=== PATIENT | male | born 1975 | race Caucasian/White ===

== ENCOUNTER 2023-08-17 17:22 | Emergency (ER) | payer OTHER, SELFPAY ==
--- NOTE | ~2023-08-17 | XR_ITS ---
EXAMINATION: XR chest 2V DATE: 08/17/2023 18:27 INDICATION: Cough and fever. TECHNIQUE: Frontal and lateral views of the chest were obtained. COMPARISON: None. FINDINGS: There are airspace opacities in the lower lung zones. No pleural effusion or pneumothorax. The heart size is normal. There are old healed right rib fractures. IMPRESSION: 1. Airspace opacities in the lower lung zones, consistent with atelectasis versus pneumonia. Reviewed, dictated and finalized at location E. IMPRESSION: 1. Airspace opacities in the lower lung zones, consistent with atelectasis vers us pneumonia.
[2023-08-17 18:00] VITALS: BP 115/84; PULSE 120; RESP 16; TEMP 38.7; O2SAT 95
--- NOTE | 2023-08-17 18:00 | ED.URI ---
HPI - URI/Sore Throat General Chief Complaint: Upper Respiratory Infection <Kurtis Ramirez APRN - Last Filed: 09/06/23 08:53> Stated Complaint: I think I have a chest infection <Kurtis Ramirez APRN - Last Filed: 09/06/23 08:53> Time Seen by Provider: 08/17/23 19:58 <Kurtis Ramirez APRN - Last Filed: 09/06/23 08:53> Focused HPI: GENERAL: Well-appearing, well-nourished, and in no acute distress. HEAD: Normocephalic, atraumatic. CHEST: Rhonchi right side No respiratory distress. HEART: Regular rate and rhythm. NEURO: Alert and oriented x3. Patient screened in triage and initial orders placed. Additional care and disposition to be based upon diagnostic testing and treatment. 47-year-old male presents emergency room for evaluation of URI symptoms have been present for 1 month. Patient is complaining of painful productive cough over the last couple of days. States he has been experiencing right-sided chest pain with cough and inspiration. States he developed a fever 2 days ago. <Kurtis Ramirez APRN - Last Filed: 09/06/23 08:53> History of Present Illness HPI Narrative: Agree with above HPI <Buck Almendarez MD - Last Filed: 08/17/23 20:15> Related Data Allergies/Adverse Reactions: Allergies Allergy/AdvReac Type Severity Reaction Status Date / Time No Known Allergies Allergy Verified 04/06/15 20:37 <Kurtis Ramirez APRN - Last Filed: 09/06/23 08:53> Review of Systems Review of Systems: All systems reviewed & are unremarkable except as noted in HPI and below <Buck Almendarez MD - Last Filed: 08/17/23 20:15> Constitutional: Constitutional: Denies chills, Reports fatigue and Reports fever(s) <Buck Almendarez MD - Last Filed: 08/17/23 20:15> Cardiovascular: Cardiovascular: Reports chest pain, Denies rapid heart rate and Denies radiating jaw, neck or arm pain <Buck Almendarez MD - Last Filed: 08/17/23 20:15> Respiratory: Respiratory: Reports cough, Reports dyspnea and Denies wheezing <Buck Almendarez MD - Last Filed: 08/17/23 20:15> Gastrointestinal: Gastrointestinal: Reports no additional gastrointestinal complaints <Buck Almendarez MD - Last Filed: 08/17/23 20:15> Musculoskeletal: Musculoskeletal: Reports no additional musculoskeletal complaints <Buck Almendarez MD - Last Filed: 08/17/23 20:15> [id number] Past Medical History Medical History: Medical History (Updated 08/18/23 @ 00:03 by Tex Lorenz) Pneumothorax <Kurtis Ramirez, [employer] - Last Filed: 09/06/23 08:53> Surgical History Surgical History: Surgical History (Updated 08/17/23 @ 20:11 by Buck Almendarez MD) H/O hernia repair <Kurtis Ramirez, [employer] - Last Filed: 09/06/23 08:53> Exam Narrative: GENERAL: Well-appearing, well-nourished, and in no acute distress. HEAD: Normocephalic, atraumatic. CHEST: Clear to auscultation. No respiratory distress. HEART: Tachycardic and regular. Normal peripheral pulses. EXTREMITIES: Normal range of motion. No edema. SKIN: Warm, dry, no rash. NEURO: Alert and oriented x3. PSYCH: Normal mood and affect. <Buck Almendarez MD - Last Filed: 08/17/23 20:15> Course Course Emergency Course: Diagnosed with pneumonia. Discussed outpatient treatment plan and labs/imaging. Discharge. <Buck Almendarez MD - Last Filed: 08/17/23 20:15> Vital Signs Vital signs: Vital Signs Temperature 38.7 C H 08/17/23 18:00 Pulse Rate 120 H 08/17/23 18:00 Respiratory Rate 16 08/17/23 18:00 Blood Pressure 115/84 08/17/23 18:00 Pulse Oximetry 95 08/17/23 18:00 Oxygen Delivery Room Air 08/17/23 18:00 Temperature 37.1 C 08/17/23 20:12 Pulse Rate 98 08/17/23 20:12 Respiratory Rate 15 08/17/23 20:12 Blood Pressure 132/60 08/17/23 20:12 Pulse Oximetry 99 08/17/23 20:12 Oxygen Delivery Room Air 08/17/23 20:12 <Kurtis Ramirez, [employer] - Last Filed: 09/06/23 08:53> Vital Signs
[2023-08-17 18:48] LABS: Basophils Percent Auto 0.2 % (0.2-1.2); Eosinophils Percent Auto 0.2 % (0-4.4); Immature Granulocyte Absolute 0.11 K/mm3 (0.00-0.031); Immature Granulocyte Percent A 0.7 % (0-0.5); Lymphocytes Absolute Auto 2.58 K/mm3 (0.9-3.2); Lymphocytes Percent Auto 15.4 % (18.3-44.2); Mean Corpuscular HGB Conc 34.2 g/dl (32-36); Mean Corpuscular Volume 84.6 fl (80-100); Mean Platelet Volume 10.3 fl (7.4-10.4); Monocytes Absolute Auto 1.5 K/mm3 (0.1-0.6); Monocytes Percent Auto 9.1 % (2.6-8.5); Neutrophils Absolute Auto 12.5 K/mm3 (1.3-6.7); Neutrophils Percent Auto 74.4 % (45.5-73.1); Platelet Count Result 143 k/mm3 (150-375); Red Blood Count 4.49 M/mm3 (4.6-6.20); Red Cell Distribution Width 12.7 % (11.5-14.5); White Blood Count 16.8 K/mm3 (4.5-10.0)
[2023-08-17 18:57] LABS: Alanine Aminotransferase 50 U/L (6-50); Albumin Level 4.1 g/dL (3.5-5.1); Alkaline Phosphatase 83 U/L (38-126); Anion Gap 8 mmol/L (4-12); Aspartate Amino Transferase 43 U/L (17-59); Bilirubin,Total 1.6 mg/dL (0.2-1.3); Blood Urea Nitrogen 11 mg/dL (9-20); Calcium 8.8 mg/dL (8.4-10.2); Carbon Dioxide 23 mmol/L (22-30); Chloride 100 mmol/L (98-107); Estimated CRCL calculation 98 ml/min; Estimated Glomerular Filt Rate > 60; Glucose 137 mg/dL (65-110); Potassium 3.6 mmol/L (3.4-5.0); Sodium 131 mmol/L (137-145)
[2023-08-17 19:23] LABS: Influenza A QL RT-PCR Negative (Negative); Influenza B QL RT-PCR Negative (Negative); RSV RNA, RT-PCR Negative (Negative); SARS-CoV-2 RNA PCR Negative (Negative)
[2023-08-17 20:12] VITALS: BP 132/60; PULSE 98; RESP 15; TEMP 37.1; O2SAT 99
[2023-08-17] MEDS: DOXYCYCLINE HYCLATE 100 MG TABLET PO (20:18)
== END 2023-08-17 20:30 | disposition home or self-care (01) ==
LOC: ANHED 20:25
PROVIDERS: Nurse Practitioner Family; Emergency Provider Emergency Medicine
DX: J18.9 Pneumonia, unspecified organism (principal); Z20.822 Contact with and (suspected) exposure to COVID-19
CPT/HCPCS: 36415; 71046; 80053; 85025; 87637; 99283; A9270